=== PATIENT | female | born 1985 | race Caucasian/White ===

== ENCOUNTER 2018-08-03 20:49 | Emergency (ER) | payer OTHER ==
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
[2018-08-03 23:31] VITALS: BP 113/72
== END 2018-08-03 23:25 | disposition home or self-care (01) ==
LOC: EEVIPCON 20:49
DX: M25.551 Pain in right hip (principal); T76.21XA Adult sexual abuse, suspected, initial encounter